=== PATIENT | female | born 1990 | race Hispanic/Latino ===

== ENCOUNTER 2018-10-04 12:53 | Emergency (ER) | payer BC ==
[2018-10-04 14:35] LABS: Urine Blood NEGATIVE (NEG); Urine Glucose NEGATIVE (NEG); Urine Protein NEGATIVE (NEG); Urine Specific Gravity 1.015 (1.005-1.030); Urine pH 6.5 (5.0-7.0)
--- NOTE | 2018-10-04 15:24 | EDPHYS ---
Physician Documentation [facility] Name: Carmela Argueta Age: 28 yrs Sex: Female : 1990 Arrival Date: 10/04/2018 Time: 12:57 Bed 17 Private MD: None, None ED Physician Herbert Osborne HPI: 10/04 13:38 This 28 yrs old Female presents to ER via Wheelchair with complaints of Flu kb Symptoms, . 13:40 The patient or guardian reports flu symptoms, low-grade fever, myalgias. Onset: The kb symptoms/episode began/occurred this morning. Severity of symptoms: At their worst the symptoms were mild, in the emergency department the symptoms are unchanged. Modifying factors: The symptoms are alleviated by nothing, the symptoms are aggravated by nothing. Associated signs and symptoms: Pertinent positives: fever, Pertinent negatives: chest pain, diarrhea, ear ache, nausea, rhinorrhea, sore throat, vomiting. The patient has not experienced similar symptoms in the past. The patient has not recently seen a physician. 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 - Social history:: Smoking status: Patient/guardian denies using tobacco. - Ebola Screening: : No symptoms or risks identified at this time. ROS: 13:37 ENT: Negative for injury, pain, and discharge, Neck: Negative for injury, pain, and kb swelling, Cardiovascular: Negative for chest pain, palpitations, and edema, Respiratory: Negative for shortness of breath, cough, wheezing, and pleuritic chest pain, Abdomen/GI: Negative for abdominal pain, nausea, vomiting, diarrhea, and constipation, Back: Negative for injury and pain, MS/Extremity: Negative for injury and deformity, Skin: Negative for injury, rash, and discoloration, Neuro: Negative for headache, weakness, numbness, tingling, and seizure. 13:37 Constitutional: Positive for body aches, chills, fatigue, fever, malaise, Negative for poor PO intake, weight loss. Exam: 13:37 Constitutional: This is a well developed, well nourished patient who is awake, alert, kb and in no acute distress. Head/Face: Normocephalic, atraumatic. ENT: Nares patent. No nasal discharge, no septal abnormalities noted. Tympanic membranes are normal and external auditory canals are clear. Oropharynx with no redness, swelling, or masses, exudates, or evidence of obstruction, uvula midline. Mucous membranes moist. Neck: Trachea midline, no thyromegaly or masses palpated, and no cervical lymphadenopathy. Supple, full range of motion without nuchal rigidity, or vertebral point tenderness. No Meningismus. Chest/axilla: Normal chest wall appearance and motion. Nontender with no deformity. No lesions are appreciated. Cardiovascular: Regular rate and rhythm with a normal S1 and S2. No gallops, murmurs, or rubs. Normal PMI, no JVD. No pulse deficits. Respiratory: Lungs have equal breath sounds bilaterally, clear to auscultation and percussion. No rales, rhonchi or wheezes noted. No increased work of breathing, no retractions or nasal flaring. Abdomen/GI: Soft, non-tender, with normal bowel sounds. No distension or tympany. No guarding or rebound. No evidence of tenderness throughout. Skin: Warm, dry with normal turgor. Normal color with no rashes, no lesions, and no evidence of cellulitis. MS/ Extremity: Pulses equal, no cyanosis. Neurovascular intact. Full, normal range of motion. Neuro: Awake and alert, GCS 15, oriented to person, place, time, and situation. Cranial nerves II-XII grossly intact. Motor strength 5/5 in all extremities. Sensory grossly intact. Cerebellar exam normal. Normal gait. Vital Signs: 13:04 BP 108 / 66; Pulse 112; Resp 18 S; Temp 99.8(O); Pulse Ox 98% on R/A; Weight 77.11 kg aa5 (R); Height 5 ft. 6 in. (167.64 cm) (R); Pain 8/10; 14:58 BP 95 / 66; Pulse 117; Resp 16 S; Temp 99.6(O); Pulse Ox 97% on R/A; jl7 13:04 Body Mass Index 27.44 (77.11 kg, 167.64 cm) aa5 MDM: 13:17 Patient medically screened. kb 13:38 Data reviewed: vital signs, nurses notes. Data interpreted: Pulse oximetry: on room air kb is 98 %. Interpretation: normal. 15:22 Counseling: I had a detailed discussion with the patient and/or guardian regarding: the kb historical points, exam findings, and any diagnostic results supporting the discharge/admit diagnosis, lab results, the need for outpatient follow up, a family practitioner, an OB/Gyne specialist, to return to the emergency department if symptoms worsen or persist or if there are any questions or concerns that arise at home. 10/04 13:03 Order name: Flu; Complete Time: 15:18 kb 10/04 13:03 Order name: Strep; Complete Time: 15:18 kb 10/04 13:04 Order name: Urine Dipstick-Ancillary (obtain specimen); Complete Time: 14:27 kb 10/04 14:27 Order name: Urine Dipstick--Ancillary (enter results); Complete Time: 14:40 bd 10/04 14:27 Order name: Urine --Ancillary (enter results); Complete Time: 14:40 bd 10/04 15:14 Order name: Throat Culture [facility] 10/04 13:04 Order name: FHT's; Complete Time: 14:27 kb 10/04 14:40 Order name: PO challenge; Complete Time: 14:59 kb Administered Medications: No medications were administered Disposition: 15:35 Co-signature as Attending Physician, Herbert Osborne MD. rn Disposition: 10/04/18 15:23 Discharged to Home. Impression: Other viral infections of unspecified site - viral syndrome. - Condition is Stable. - Discharge Instructions: Viral Respiratory Infection, [id number]. - Medication Reconciliation Form, Thank You Letter, Antibiotic Education, Prescription Opioid Use form. - Follow up: Emergency Department; When: As needed; Reason: Worsening of condition. Follow up: Private Physician; When: 2 - 3 days; Reason: Recheck today's complaints, Continuance of care, Re-evaluation by your physician. Signatures: Dispatcher [employer] EDIN Janet Dueñas, RETIREMENT ADMINISTRATOR-C RETIREMENT ADMINISTRATOR-Ckb Herbert Osborne MD MD rn Calderon, Audri, RN RN aa5 Luis Carlos Marvin RN RN jl7 Corrections: (The following items were deleted from the chart) 15:32 15:23 10/04/2018 15:23 Discharged to Home. Impression: Other viral infections of jl7 unspecified site - viral syndrome. Condition is Stable. Forms are Medication Reconciliation Form, Thank You Letter, Antibiotic Education, Prescription Opioid Use. Follow up: Emergency Department; When: As needed; Reason: Worsening of condition. Follow up: Private Physician; When: 2 - 3 days; Reason: Recheck today's complaints, Continuance of care, Re-evaluation by your physician. kb
--- NOTE | 2018-10-04 15:24 | ER ---
Nurse's Notes [facility] Name: Carmela Argueta Age: 28 yrs Sex: Female : 1990 Arrival Date: 10/04/2018 Time: 12:57 Bed 17 Private MD: None, None Diagnosis: Other viral infections of unspecified site-viral syndrome Presentation: 10/04 13:02 Presenting complaint: Patient states: body aches, headache, and chills that began last aa5 night. Denies cough. Pt states "I feel like I have the flu". Pt reports being approximately 22 weeks . Transition of care: patient was not received from another setting of care. Onset of symptoms was 2017. Risk Assessment: Do you want to hurt yourself or someone else? Patient reports no desire to harm self or others. Initial Sepsis Screen: Does the patient meet any 2 criteria? No. Patient's initial sepsis screen is negative. Does the patient have a suspected source of infection? No. Patient's initial sepsis screen is negative. Care prior to arrival: None. 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 - Social history:: Smoking status: Patient/guardian denies using tobacco. - Ebola Screening: : No symptoms or risks identified at this time. Screenin:30 Abuse screen: Denies threats or abuse. Denies injuries from another. Nutritional jl7 screening: No deficits noted. Tuberculosis screening: No symptoms or risk factors identified. Fall Risk None identified. Assessment: 13:30 General: Appears in no apparent distress. uncomfortable, Behavior is calm, cooperative, jl7 appropriate for age. Pain: Denies pain. Neuro: Level of Consciousness is awake, alert, obeys commands, Oriented to person, place, time, situation. Cardiovascular: Patient's skin is warm and dry. Respiratory: Airway is patent Respiratory effort is even, unlabored, Respiratory pattern is regular, symmetrical, Breath sounds are clear bilaterally. GI: No signs and/or symptoms were reported involving the gastrointestinal system. : No signs and/or symptoms were reported regarding the genitourinary system. EENT: No signs and/or symptoms were reported regarding the EENT system. Derm: Skin is pink, warm \\T\\ dry. Musculoskeletal: No signs and/or symptoms reported regarding the musculoskeletal system. 14:52 Reassessment: No changes from previously documented assessment. Patient and/or family jl7 updated on plan of care and expected duration. Pain level reassessed. Patient is alert, oriented x 3, equal unlabored respirations, skin warm/dry/pink. Vital Signs: 13:04 BP 108 / 66; Pulse 112; Resp 18 S; Temp 99.8(O); Pulse Ox 98% on R/A; Weight 77.11 kg aa5 (R); Height 5 ft. 6 in. (167.64 cm) (R); Pain 8/10; 14:58 BP 95 / 66; Pulse 117; Resp 16 S; Temp 99.6(O); Pulse Ox 97% on R/A; jl7 13:04 Body Mass Index 27.44 (77.11 kg, 167.64 cm) aa5 Vitals: 14:28 Heart Tones 156. jl7 ED Course: 12:57 Patient arrived in ED. mr 12:57 None, None is Private Physician. mr 12:59 Janet Due[facility]as F[facility]-C [facility] kb 12:59 Herbert Osborne MD is Attending Physician. kb 13:01 Arm band placed on. aa5 13:03 Triage completed. aa5 13:20 Luis Carlos Marvin, RN is Primary Nurse. jl7 13:30 Patient has correct armband on for positive identification. Bed in low position. Call jl7 light in reach. Side rails up X 1. Pulse ox on. NIBP on. 13:30 Flu and/or RSV swab sent to lab. Strep swab sent to lab. jl7 14:30 Urine collected: clean catch specimen, clear. jl7 15:31 No provider procedures requiring assistance completed. Patient did not have IV access jl7 during this emergency room visit. Administered Medications: No medications were administered Outcome: 15:23 Discharge ordered by . kb 15:31 Discharged to home ambulatory. jl7 15:31 Condition: stable 15:31 Discharge instructions given to patient, family, Instructed on discharge instructions, follow up and referral plans. Demonstrated understanding of instructions, follow-up care. 15:32 Patient left the ED. jl7 Signatures: Janet Dueñas FNP-C FNP-Ckb Rivera, Mary mr SonuNelly, RN RN aa5 Luis Calros Marvin RN RN jl7
[2018-10-04 16:13] VITALS: BP 95/66; TEMP 99.6; O2SAT 97
== END 2018-10-04 15:32 | disposition home or self-care (01) ==
LOC: ER 12:53
DX: B34.9 Viral infection, unspecified (principal); Z33.1 Pregnant state, incidental
CPT/HCPCS: 81003; 81025; 87070; 87081; 87804; 99283

== ENCOUNTER 2019-01-25 08:36 | Emergency (ER) | payer BC, OTHER, SELFPAY ==
--- OUTSIDE RECORDS SUMMARY | 2019-01-25 08:43 | XMS REPORT ---
:1990 Author Organization eClinicalWorks Care Team Providers Name Role Phone Dannie Martinez Provider Role Unavailable Allergies No Known Allergies Problems Problem Type Condition Code Onset Dates Condition Status Problem Uterine scar from previous O34.219 Active delivery, antepartum Problem History of gestational diabetes Z86.32 Active Problem Maternal care due to low O34.211 Active transverse uterine scar from previous delivery Problem Anemia affecting in O99.013 Active third trimester Problem Bariatric surgery status O99.843 Active complicating , third trimester Problem Need for Tdap vaccination Z23 Active Problem Supervision of high risk O09.92 Active in second trimester Problem Bariatric surgery status O99.842 Active complicating , second trimester Problem Supervision of high risk O09.93 Active in third trimester Problem Needs flu shot Z23 Active Assessment Bariatric surgery status O99.843 Active complicating , third trimester Assessment Supervision of high risk O09.93 Active in third trimester Assessment History of gestational diabetes Z86.32 Active Assessment Maternal care due to low O34.211 Active transverse uterine scar from previous delivery Problem Bariatric surgery status O99.841 Active complicating , first trimester Problem Supervision of with O09.299 Active other poor reproductive or obstetric history, unspecified trimester Problem Encounter to determine O36.80X0 Active viability of , single or unspecified fetus Problem Encounter for gynecological Z01.419 Active examination without abnormal finding Problem Supervision of high risk O09.91 Active in first trimester Medications No Known Medications Results No Known Results Summary Purpose eClinicalWorks Submission
--- OUTSIDE RECORDS SUMMARY | 2019-01-25 08:43 | XMS REPORT ---
[...] Anemia affecting in O99.013 Active third trimester Assessment Need for Tdap vaccination Z23 Active Problem Bariatric surgery status O99.843 Active complicating , third trimester Assessment Anemia affecting in O99.013 Active third trimester Problem Need for Tdap vaccination [...] risk O09.91 Active in first trimester Medications Medication Code Code Instructions Start End Status Dosage System Date Date CitraNatal 90 ND 47249302756 90-1 & 300 MG Dec 22, Active as directed DHA Orally 2018 Ferralet 90 NDC 29939795493 90-1 MG Orally Dec 22, Active 1 tablet Once a day 2018 Results No Known Results Immunizations Vaccine Administration Date TDAP > 7 Years-Adacel Dec 22, 2018 Summary Purpose eClinicalWorks Submission
--- OUTSIDE RECORDS SUMMARY | 2019-01-25 08:44 | XMS REPORT ---
[...] affecting in O99.013 Active third trimester Assessment History of gestational diabetes Z86.32 Active Problem Bariatric surgery status O99.843 Active complicating , third trimester Problem Need for Tdap vaccination Z23 Active Problem Supervision of high risk O09.92 Active in second trimester Problem Bariatric surgery status O99.842 Active complicating , second trimester Problem Supervision of high risk O09.93 Active in third trimester Problem Needs flu shot Z23 Active Assessment Anemia affecting in O99.013 Active third trimester Assessment Supervision of high risk O09.93 Active in third trimester Assessment Maternal care due to low O34.211 Active transverse uterine scar from previous delivery Assessment Bariatric surgery status O99.843 Active complicating , third trimester Problem Bariatric surgery status O99.841 Active complicating [...] Status Dosage System Date Date CitraNatal [address] [facility] 05840699371 90-1 & 300 MG Dec 22, Active as directed DHA Orally 2018 Ferralet 90 ND 59224983384 90-1 MG Orally Dec 22, Active 1 tablet Once a day 2018 Results No Known Results Summary Purpose eClinicalWorks Submission
--- OUTSIDE RECORDS SUMMARY | 2019-01-25 08:44 | XMS REPORT ---
:1990 [address] [facility] Team Providers Name Role Phone Dannie [...] Problem Needs flu shot Z23 Active Assessment Supervision of high risk O09.93 Active in third trimester Assessment Anemia affecting in O99.013 Active third trimester Assessment Maternal care due to [...] Start End Status Dosage System Date Date Ferralet 90 [facility] 58512504362 90-1 MG Orally Dec 22, Active 1 tablet Once a day 2018 CitraNatal 90 ND 88431234263 90-1 & 300 MG Dec 22, Active as directed DHA Orally 2018 Results Name Result Date Reference Range Unit Abnormality Flag CBC (INCLUDES DIFF/PLT) ----ABSOLUTE BASOPHILS 33 [id number] 0-200 cells/uL N ----ABSOLUTE EOSINOPHILS 59 [id number] 15-500 cells/uL N ----LYMPHOCYTES 26.6 41665571 % N ----NEUTROPHILS 65.7 61856167 % N ----PLATELET COUNT 229 [id number] 140-400 Thousand/uL N ----EOSINOPHILS 0.9 68964550 % N ----RDW 13.1 40025344 11.0-15.0 % N ----MONOCYTES 6.3 55243147 % N ----MCHC 33.8 22277320 32.0-36.0 g/dL N ----MCH 27.8 54668109 27.0-33.0 pg N ----MCV 82.4 49097300 80.0-100.0 fL N ----ABSOLUTE NEUTROPHILS 4336 17109086 7881-0245 cells/uL N ----MPV 8.9 41936345 7.5-12.5 fL N ----ABSOLUTE MONOCYTES 416 27744263 200-950 cells/uL N ----ABSOLUTE LYMPHOCYTES 1756 20923278 850-3900 cells/uL N ----BASOPHILS 0.5 44668745 % N ----WHITE BLOOD CELL 6.6 26186143 3.8-10.8 Thousand/uL N COUNT ----RED BLOOD CELL COUNT 3.81 53038502 3.80-5.10 Million/uL N ----HEMOGLOBIN 10.6 64415406 11.7-15.5 g/dL L ----HEMATOCRIT 31.4 [id number] 35.0-45.0 % L Summary Purpose eClinicalWorks Submission
--- OUTSIDE RECORDS SUMMARY | 2019-01-25 08:44 | XMS REPORT ---
[...] Status Dosage System Date Date Ferralet 90 [facility] [id number] 90-1 MG Orally Dec 22, Active 1 tablet Once a day 2018 CitraNatal 90 ND [id number] 90-1 & 300 MG Dec 22, Active as directed DHA Orally 2018 Results No Known Results Summary Purpose eClinicalWorks Submission
--- NOTE | 2019-01-25 09:13 | ER ---
Nurse's Notes [facility] Name: Carmela Argueta Age: 28 yrs Sex: Female : 1990 Arrival Date: 01/25/2019 Time: 08:37 Bed 14 Private MD: Diagnosis: Rash and other nonspecific skin eruption-PUPPP Presentation: 01/25 08:41 Risk Assessment: Do you want to hurt yourself or someone else? Patient reports no tw2 desire to harm self or others. Initial Sepsis Screen: Does the patient meet any 2 criteria? No. Patient's initial sepsis screen is negative. Does the patient have a suspected source of infection? Yes: Skin breakdown/wound. Care prior to arrival: None. 08:46 Presenting complaint: Patient states: Rash that started Sun on L breast, moved to R ph breast , abdomen, back, flanks, and back of neck, pt reports itching, denies recent illness or fever. Transition of care: patient was not received from another setting of care. Onset of symptoms was January 25, 2019. 08:46 Method Of Arrival: Ambulatory ph 08:46 Acuity: SCOTT 4 ph Triage Assessment: 08:38 General: Appears in no apparent distress. well groomed, Behavior is calm, cooperative, tw2 appropriate for age. 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 - Social history:: Smoking status: . - Ebola Screening: : Patient denies travel to an Ebola-affected area in the 21 days before illness onset. Screenin:40 Abuse screen: Denies threats or abuse. Nutritional screening: No deficits noted. tw2 Tuberculosis screening: No symptoms or risk factors identified. Fall Risk None identified. Assessment: 08:38 General: Appears in no apparent distress. well groomed, Behavior is calm, cooperative, tw2 appropriate for age. Pain: Denies pain. Neuro: Level of Consciousness is awake, alert, obeys commands, Oriented to person, place, time, situation. Cardiovascular: Patient's skin is warm and dry. Respiratory: Airway is patent Respiratory effort is even, unlabored, Respiratory pattern is regular, symmetrical. Derm: Reports itching, rash on torso. 09:26 Reassessment: Patient appears in no apparent distress at this time. Patient and/or tw2 family updated on plan of care and expected duration. Pain level reassessed. Patient is alert, oriented x 3, equal unlabored respirations, skin warm/dry/pink. Vital Signs: 08:48 BP 117 / 79; Pulse 96; Resp 18; Temp 97.5; Pulse Ox 99% on R/A; Weight 88.45 kg; Height ph 5 ft. 6 in. (167.64 cm); Pain 0/10; 08:48 Body Mass Index 31.47 (88.45 kg, 167.64 cm) ph ED Course: 08:37 Patient arrived in ED. as 08:39 Mae Reina RN is Primary Nurse. tw2 08:39 Janet Dueñas FNP-C is PHCP. kb 08:39 Herbert Osborne MD is Attending Physician. kb 08:41 Arm band placed on. tw2 08:41 Bed in low position. Call light in reach. Adult w/ patient. Pulse ox on. NIBP on. tw2 08:48 Triage completed. ph 09:27 No provider procedures requiring assistance completed. Patient did not have IV access tw2 during this emergency room visit. Administered Medications: 09:11 Drug: Pepcid 20 mg Route: PO; tw2 09:24 Follow up: Response: No adverse reaction tw2 09:12 Drug: Benadryl 25 mg Route: PO; tw2 09:24 Follow up: Response: No adverse reaction tw2 Outcome: 09:13 Discharge ordered by . kb 09:27 Discharged to home ambulatory, with significant other. tw2 09:27 Condition: stable 09:27 Discharge instructions given to patient, significant other. 09:28 Patient left the ED. tw2 Signatures: Janet Dueñas FNP-C FNP-Ckb Martinez, Amelia as Hall, Patricia, RN RN ph Mae Reina RN RN tw2 Corrections: (The following items were deleted from the chart) 08:49 08:48 BP 117 / 79; Pulse 18bpm; Resp 18bpm; Pulse Ox 99% RA; Temp 97.5F; 88.45 kg; ph Height 5 ft. 6 in.; BMI: 31.4; Pain 0/10; ph
--- NOTE | 2019-01-25 09:13 | EDPHYS ---
Physician Documentation [facility] Name: Carmela Argueta Age: 28 yrs Sex: Female : 1990 Arrival Date: 01/25/2019 Time: 08:37 Bed 14 Private MD: ED Physician Herbert Osborne HPI: 01/25 09:12 This 28 yrs old Female presents to ER via Ambulatory with complaints of Rash. kb 09:12 The patient's rash thought to be caused by an unknown cause. The rash is located on the kb chest, abdomen and neck. The rash can be described as macular, papular. Onset: The symptoms/episode began/occurred 3 day(s) ago. Associated signs and symptoms: Pertinent positives: itching, Pertinent negatives: burning sensation, difficulty breathing, fever, nausea, Pain swelling of lips, swelling of throat, swelling of tongue, vomiting, wheezing. Severity of symptoms: At their worst the symptoms were mild moderate in the emergency department the symptoms are unchanged. The patient has not experienced similar symptoms in the past. The patient has not recently seen a physician. HOG SCALDER: 08:48 Verified ph Historical: - Allergies: 08:41 No Known Drug Allergies; tw2 - PMHx: 08:41 gestational diabetes; tw2 - PSHx: 08:41 ; lap band; tw2 - Immunization history:: Adult Immunizations. - Social history:: Smoking status: . - Ebola Screening: : Patient denies travel to an Ebola-affected area in the 21 days before illness onset. ROS: 09:08 Constitutional: Negative for fever, chills, and weight loss, Cardiovascular: Negative kb for chest pain, palpitations, and edema, Respiratory: Negative for shortness of breath, cough, wheezing, and pleuritic chest pain, Abdomen/GI: Negative for abdominal pain, nausea, vomiting, diarrhea, and constipation, Back: Negative for injury and pain, MS/Extremity: Negative for injury and deformity, Neuro: Negative for headache, weakness, numbness, tingling, and seizure. 09:08 Skin: Positive for rash. Exam: 09:08 Constitutional: This is a well developed, well nourished patient who is awake, alert, kb and in no acute distress. Head/Face: Normocephalic, atraumatic. Chest/axilla: Normal chest wall appearance and motion. Nontender with no deformity. No lesions are appreciated. Cardiovascular: Regular rate and rhythm with a normal S1 and S2. No gallops, murmurs, or rubs. Normal PMI, no JVD. No pulse deficits. Respiratory: Lungs have equal breath sounds bilaterally, clear to auscultation and percussion. No rales, rhonchi or wheezes noted. No increased work of breathing, no retractions or nasal flaring. Abdomen/GI: Soft, non-tender, with normal bowel sounds. No distension or tympany. No guarding or rebound. No evidence of tenderness throughout. MS/ Extremity: Pulses equal, no cyanosis. Neurovascular intact. Full, normal range of motion. Neuro: Awake and alert, GCS 15, oriented to person, place, time, and situation. Cranial nerves II-XII grossly intact. Motor strength 5/5 in all extremities. Sensory grossly intact. Cerebellar exam normal. Normal gait. 09:08 Skin: rash can be described as macular, papular, urticarial, consistent with PUPPP. Vital Signs: 08:48 BP 117 / 79; Pulse 96; Resp 18; Temp 97.5; Pulse Ox 99% on R/A; Weight 88.45 kg; Height ph 5 ft. 6 in. (167.64 cm); Pain 0/10; 08:48 Body Mass Index 31.47 (88.45 kg, 167.64 cm) ph MDM: 08:40 Patient medically screened. kb 09:10 Data reviewed: vital signs, nurses notes. Data interpreted: Pulse oximetry: on room air kb is 99 %. Interpretation: normal. Counseling: I had a detailed discussion with the patient and/or guardian regarding: the historical points, exam findings, and any diagnostic results supporting the discharge/admit diagnosis, the need for outpatient follow up, an OB/Gyne specialist, to return to the emergency department if symptoms worsen or persist or if there are any questions or concerns that arise at home. Administered Medications: 09:11 Drug: Pepcid 20 mg Route: PO; tw2 09:24 Follow up: Response: No adverse reaction tw2 09:12 Drug: Benadryl 25 mg Route: PO; tw2 09:24 Follow up: Response: No adverse reaction tw2 Disposition: 10:37 Co-signature as Attending Physician, Herbert Osborne MD. rn Disposition: 01/25/19 09:13 Discharged to Home. Impression: Rash and other nonspecific skin eruption - PUPPP. - Condition is Stable. - Discharge Instructions: Rash, [id number]. - Medication Reconciliation Form, Thank You Letter, Antibiotic Education, Prescription Opioid Use, Work release form, Family Work Release form. - Follow up: Emergency Department; When: As needed; Reason: Worsening of condition. Follow up: Private Physician; When: 2 - 3 days; Reason: Recheck today's complaints, Continuance of care, Re-evaluation by your physician. Signatures: Janet Dueñas, SCRIBING MACHINE OPERATOR-C SCRIBING MACHINE OPERATOR-CkHerbert Roberts MD MD rn Reina, MARITA Wall RN tw2 Corrections: (The following items were deleted from the chart) 09:28 09:13 01/25/2019 09:13 Discharged to Home. Impression: Rash and other nonspecific skin tw2 eruption - PUPPP. Condition is Stable. Forms are Work release form, Family Work Release, Medication Reconciliation Form, Thank You Letter, Antibiotic Education, Prescription Opioid Use. Follow up: Emergency Department; When: As needed; Reason: Worsening of condition. Follow up: Private Physician; When: 2 - 3 days; Reason: Recheck today's complaints, Continuance of care, Re-evaluation by your physician. kb
[2019-01-25] MEDS ORDERED: DIPHENHYDRAMINE 25 MG TAB/CAP ONE (09:20)
[2019-01-25] MEDS ORDERED: FAMOTIDINE 20 MG TAB ONE (09:20)
[2019-01-25 09:31] VITALS: BP 117/79; TEMP 97.5; O2SAT 99
== END 2019-01-25 09:28 | disposition home or self-care (01) ==
LOC: ER 08:36
DX: R21 Rash and other nonspecific skin eruption (principal); O24.419 Gestational diabetes mellitus in pregnancy, unspecified control; Z3A.00 Weeks of gestation of pregnancy not specified
CPT/HCPCS: 99283

== ENCOUNTER 2019-02-02 07:30 | Inpatient (IN) | payer OTHER ==
[2019-02-01 15:18] LABS: Urine Appearance CLEAR; Urine Bilirubin NEGATIVE (NEG); Urine Blood NEGATIVE (NEG); Urine Color YELLOW; Urine Glucose NEGATIVE (NEG); Urine Protein NEGATIVE (NEG); Urine Specific Gravity 1.015 (1.005-1.030); Urine pH 6.5 (5.0-7.0)
[2019-02-01 15:21] LABS: Absolute Lymphocytes (CBC) 1.6 K/uL (0.7-4.9); Absolute Monocytes 0.4 K/uL (0.1-1.3); Absolute Neutrophil 3.6 K/uL (1.8-8.0); Basophils % 0.7 % (0-1.3); Eosinophils % 1.5 % (0-4.4); Hematocrit 36.8 % (36.0-45.0); Lymphocytes % 27.8 % (15.3-44.8); MPV 7.1 fL (7.6-11.3); Monocytes % 6.7 % (3.3-12.3); RBC Red Blood Cell Count 4.45 M/uL (3.86-4.86)
[2019-02-01 15:22] LABS: Urine Microscopic Reflex NO UMIC
[2019-02-01 16:11] LABS: Blood Morphology Comment NOT SEEN (NOT SEEN); Platelet Estimate ADEQ; Urine White Blood Cell Casts OK
[~2019-02-02 07:30] MED LIST: CEFAZOLIN/SWI 2gm 2 GM/20 ML SYR IV SCH
--- OUTSIDE RECORDS SUMMARY | 2019-02-02 09:19 | XMS REPORT ---
:1990 [facility] Team Providers Name Role [...] Status Dosage System Date Date Ferralet 90 [facility] [id number] 90-1 MG Orally Dec 22, Active 1 tablet Once a day 2018 CitraNatal 90 [place] 03464010457 90-1 & 300 MG Dec 22, Active as directed DHA Orally 2018 Results Name Result Date Reference Range Unit Abnormality Flag CBC (INCLUDES DIFF/PLT) ----ABSOLUTE BASOPHILS 33 [id number] 0-200 cells/uL N ----ABSOLUTE EOSINOPHILS 59 [id number] 15-500 cells/uL N ----LYMPHOCYTES 26.6 12780520 % N ----NEUTROPHILS 65.7 49022068 % N ----PLATELET COUNT 229 [id number] 140-400 Thousand/uL N ----EOSINOPHILS 0.9 67321035 % N ----RDW 13.1 61951617 11.0-15.0 % N ----MONOCYTES 6.3 26777814 % N ----MCHC 33.8 45452893 32.0-36.0 g/dL N ----MCH 27.8 71050476 27.0-33.0 pg N ----MCV 82.4 43139232 80.0-100.0 fL N ----ABSOLUTE NEUTROPHILS 4336 40349874 6316-0519 cells/uL N ----MPV 8.9 41209552 7.5-12.5 fL N ----ABSOLUTE MONOCYTES 416 09185939 200-950 cells/uL N ----ABSOLUTE LYMPHOCYTES 1756 89286224 850-3900 cells/uL N ----BASOPHILS 0.5 93138808 % N ----WHITE BLOOD CELL 6.6 93390282 3.8-10.8 Thousand/uL N COUNT ----RED BLOOD CELL COUNT 3.81 38948218 3.80-5.10 Million/uL N ----HEMOGLOBIN 10.6 00070312 11.7-15.5 g/dL L ----HEMATOCRIT 31.4 42219507 35.0-45.0 % L Summary Purpose eClinicalWorks Submission
--- OUTSIDE RECORDS SUMMARY | 2019-02-02 09:19 | XMS REPORT ---
[...] Dosage System Date Date CitraNatal 90 ND 48342946750 90-1 & 300 MG Dec 22, Active as directed DHA Orally 2018 Ferralet 90 [facility] 45793144213 90-1 MG Orally Dec 22, Active 1 tablet Once a day 2018 Results No Known Results Immunizations Vaccine Administration Date TDAP > 7 Years-Adacel Dec 22, 2018 Summary Purpose eClinicalWorks Submission
--- OUTSIDE RECORDS SUMMARY | 2019-02-02 09:20 | XMS REPORT ---
[...] Status Dosage System Date Date CitraNatal 90 [facility] [id number] 90-1 & 300 MG Dec 22, Active as directed DHA Orally 2018 Ferralet 90 ND 42209713802 90-1 MG Orally Dec 22, Active 1 tablet Once a day 2018 Results No Known Results Summary Purpose eClinicalWorks Submission
--- OUTSIDE RECORDS SUMMARY | 2019-02-02 09:20 | XMS REPORT ---
[...] Dosage System Date Date Ferralet 90 [facility] [id number] 90-1 MG Orally Dec 22, Active 1 tablet Once a day 2018 CitraNatal 90 ND 84840351566 90-1 & 300 MG Dec 22, Active as directed DHA Orally 2018 Results No Known Results Summary Purpose eClinicalWorks Submission
--- OUTSIDE RECORDS SUMMARY | 2019-02-02 09:20 | XMS REPORT ---
:1990 Author Organization eClinical[employer] Care Team Providers Name Role Phone Dannie Martinez Provider Role Unavailable Allergies No Known Allergies Problems Problem Type Condition Code Onset Dates Condition Status Problem Maternal care due to low O34.211 Active transverse uterine scar from previous delivery Problem Bariatric surgery status O99.842 Active complicating , second trimester Problem History of gestational diabetes Z86.32 Active Problem Need for Tdap vaccination Z23 Active Problem Anemia affecting in O99.013 Active third trimester Problem PUPPP (pruritic urticarial papules O26.86 Active and plaques of ) Problem Needs flu shot Z23 Active Problem Supervision of high risk O09.92 Active in second trimester Problem Bariatric surgery status O99.843 Active complicating , third trimester Problem Supervision of high risk O09.93 Active in third trimester Assessment PUPPP (pruritic urticarial papules O26.86 Active and plaques of ) Problem Supervision of with O09.299 Active other poor reproductive or obstetric history, unspecified trimester Problem Encounter to determine O36.80X0 Active viability of , single or unspecified fetus Problem Encounter for gynecological Z01.419 Active examination without abnormal finding Problem Supervision of high risk O09.91 Active in first trimester Problem Bariatric surgery status O99.841 Active complicating , first trimester Problem Uterine scar from previous O34.219 Active delivery, antepartum Medications Medication Code Code Instructions Start End Status Dosage System Date Date Betamethasone NDC 64074121670 0.05 % Jan 25January Active 1 application Dipropionate Externally 2018 05, to affected Twice a day 2019 area Results No Known Results Summary Purpose eClinicalWorks Submission
--- OUTSIDE RECORDS SUMMARY | 2019-02-02 09:20 | XMS REPORT ---
[...] risk O09.93 Active in third trimester Problem Supervision of with O09.299 Active [...] from previous O34.219 Active delivery, antepartum Medications No Known Medications Results No Known Results Summary Purpose eClinicalWorks Submission
[2019-02-02] MEDS ORDERED: Ringers Lactate 1,000 ML IV PRN (09:39)
[2019-02-02] MEDS ORDERED: NA CIT/CITRIC AC 30 ML ORAL UDC PO ONE (09:41)
[2019-02-02] MEDS ORDERED: METHYLERGONOVINE 0.2MG/ML AMP IM ONE (09:57)
[2019-02-02] MEDS ORDERED: CARBOPROST TROME 250 MCG/ML IM ONE (09:58)
[2019-02-02] MEDS ORDERED: METOCLOPRAMIDE 10 MG/2mL INJ IV SCH (10:00)
[2019-02-02] MEDS ORDERED: Ringers Lactate 1,000 ML IV SCH ×2 (10:00→19:00)
[2019-02-02] MEDS ORDERED: MORPHINE SULFATE/PF 1 MG/ML (10 ML AMP) ONE (11:50)
[2019-02-02] MEDS ORDERED: OXYTOCIN 10 UNIT/ML ML IV ONE ×2 (11:51→12:18)
[2019-02-02] MEDS ORDERED: Phenylephrine HCl 10 MG/ML 1 ML VIAL ONE (12:18)
[2019-02-02] MEDS ORDERED: ONDANSETRON 4 MG/2 ML VIAL ONE (12:22)
[2019-02-02] MEDS ORDERED: GLYCOPYRROLATE 0.2 MG/ML SYR ONE (12:23)
[2019-02-02 13:45] VITALS: BMI 32.1
[2019-02-02] MEDS ORDERED: KETOROLAC 30 MG/ML INJ IV PRN ×2 (17:58→18:07)
[2019-02-02] MEDS ORDERED: ONDANSETRON 4 MG (ODT) TAB PO PRN (18:02)
[2019-02-02] MEDS ORDERED: ONDANSETRON 4 MG/2 ML VIAL IV PRN (18:02)
[2019-02-02] MEDS ORDERED: KETOROLAC 30 MG/ML INJ IM PRN (18:05)
[2019-02-02] MEDS ORDERED: DIPHENHYDRAMINE 25 MG TAB/CAP PO PRN (18:22)
--- NOTE | 2019-02-02 21:27 | P.OBGYNHP ---
Certification for Inpatient Patient admitted to: Inpatient With expected LOS: >2 Midnights Patient will require the following post-hospital care: None Practitioner: I am a practitioner with admitting privileges, knowledge of patient current condition, hospital course, and medical plan of care. Services: Services provided to patient in accordance with Admission requirements found in Title 42 Section 412.3 of the Code of Federal Regulations Patient History Date of Service: 02/02/19 Reason for admission: REPEAT C/S AND TUBAL LIGATION History of Present Illness: Patient is a 28 y/o at 39 weeks gestation with high risk who presents with a h/o 2 prior section and multiparous female with high risk who desires permanent sterilization. Patient has obtained care with me as well as MFM. She has been closely monitored for growth and polyhydramnios due to history of bariatric surgery, obesity, and prior gestational diabetes. Due to these risks as well as risk of repeat sections patient does not desire further childbearing. Approval obtained from administration. See records for further details. Allergies No Known Drug Allergies Allergy (Verified 02/02/19 10:05) Unknown Home Medications: Vit #108/Iron/FA [ One Tablet] 325 mg PO DAILY 07/20/15 Aspirin [Adult Aspirin] 81 mg PO DAILY 02/02/19 Ferrous Sulfate [Iron] 325 mg PO DAILY 02/02/19 - Past Medical/Surgical History Diabetic: Yes -: Gestational Diabetes -: Asthma in childhood -: obesity -: section 2009 & 2014 -: Lap band 2012 -: gastric bypass 2016 - Family History Mother -: Diabetes Diabetes, High cholesterol, Hypertension -: Hypertension, Diabetes, Other (see notes) - Social History Smoking Status: Never smoker Alcohol use: No CD- Drugs: No Caffeine use: Yes Place of Residence: Home Review of Systems 10-point ROS is otherwise unremarkable Physical Examination - Vital Signs Temperature: 97.9 F Blood Pressure: 122/66 Pulse: 65 Respirations: 12 Pulse Ox (%): 98 - General General: Alert and in no apparent distress HEENT: Atraumatic Neck: Supple Respiratory: Normal air movement Cardiovascular: No edema, Normal pulses Breasts: Normal configuration Gastrointestinal: Other (gravid) Neurological: Normal gait, Normal speech - Female Pelvic External genitalia: Normal Vagina: [place], Moist Uterus: Gravid Assessment and Plan - Plan 28 y/o at 39 weeks gestation with high risk with a h/o 2 prior sections who desires permanent sterilization presents today for repeat section and bilateral tubal ligation. Ancef 2 grams IV given prior to incision. Routine postoperative care to be provided. Discharge Plan: Home Plan to discharge in: 48 Hours - Advance Directives Does patient have a Living Will: No Does patient have a Durable POA for Healthcare: No
--- NOTE | 2019-02-02 21:49 | P.OP ---
Palliative Care Physician: Sunday Warner Preoperative diagnosis: Term , multiparity, desires permanent sterilization Postoperative diagnosis: same Primary procedure: Repeat low transverse section and bilateral tubal ligation Anesthesia: Spinal Estimated blood loss: 800 Specimen: Cord blood, placenta Operative Technique: The patient was taken to the operating room where spinal anesthesia was administered without difficulty. The patient was prepped and draped in the usual sterile fashion in the dorsal supine position with a leftward tilt. A Pfannenstiel skin incision was made with the scalpel and carried through to the underlying layer of fascia using the Bovie. The fascia was incised in the midline and extended laterally using Chiang scissors. Dustin clamps were used to elevate the superior aspect of the fascial incision, which was elevated, and the underlying rectus muscles were dissected off bluntly and using Chiang scissors. Attention was then turned to the inferior aspect of the fascial incision, which in similar fashion was grasped with Dustin clamps, elevated, and the underlying rectus muscles were dissected off bluntly and using the Bovie. The rectus muscles were dissected in the midline. The peritoneum was identified and entered using Metzenbaum scissors; this incision was extended superiorly and inferiorly with good visualization of the bladder. The bladder blade was inserted. The vesicouterine peritoneum was identified and entered sharply using Metzenbaum scissors. This incision was extended laterally and the bladder flap was created digitally. The bladder blade was reinserted. The lower uterine segment was incised in a transverse fashion using the scalpel and extended with manual traction. Clear fluid was noted. The infant was subsequently delivered. The nose and mouth were bulb suctioned. The cord was clamped and cut. The infant was subsequently handed to the awaiting nursery nurse. The placenta was delivered spontaneously intact with a three-vessel cord noted. The uterus was exteriorized and cleared of all clots and debris. The uterine incision was repaired in 2 layers using 0 chromic sutures. Hemostasis was visualized. Attention was turned to the right fallopian tube, which was grasped with [place] clamp using a modified Wan method, a 2 cm of segment of tube ligated x2, transected and specimen was sent to pathology. Attention was then turned to the left fallopian tube, which was grasped with Polo clamp again using a modified [place] method, a 2 cm segment of tube was ligated x2 and transected. Hemostasis was visualized bilaterally. The uterus was returned to the abdomen, both fallopian tubes were visualized and were noted to be hemostatic. The uterine incision was reexamined and it was noted to be hemostatic. The rectus muscles were reapproximated in the midline using 0 Vicryl. The fascia was closed with 1 Vicryl suture, the subcutaneous layer was closed with 2-0 plain gut, and the skin was closed with 3.0 vicryl on a Gunner needle. Sponge, lap, and instrument counts were correct x2. The patient was stable at the completion of the procedure and was subsequently transferred to the recovery room in stable condition. Complications: None Drain(s): Urinary catheter Transferred to: Recovery Room Condition: Good
[2019-02-02] MEDS ORDERED: ACETAMINOPHEN 500 MG TAB PO PRN (22:23)
[2019-02-02] MEDS ORDERED: Oxycodone HCl/Acetaminophen 1 TAB TAB PO PRN (22:23)
[2019-02-02] MEDS ORDERED: IBUPROFEN 400 MG TAB PO PRN (22:26)
[2019-02-03 05:02] LABS: Absolute Lymphocytes (CBC) 1.6 K/uL (0.7-4.9); Absolute Monocytes 0.5 K/uL (0.1-1.3); Absolute Neutrophil 6.6 K/uL (1.8-8.0); Basophils % 0.4 % (0-1.3); Eosinophils % 0.4 % (0-4.4); Hematocrit 33.7 % (36.0-45.0); Lymphocytes % 18.5 % (15.3-44.8); MPV 7.2 fL (7.6-11.3); Monocytes % 5.9 % (3.3-12.3); RBC Red Blood Cell Count 4.12 M/uL (3.86-4.86)
[2019-02-03] MEDS ORDERED: FAMOTIDINE 20 MG/2 ML VIAL IV ONE (09:43)
[2019-02-03] MEDS: Oxycodone HCl/Acetaminophen 1 TAB TAB PO PRN (20:28)
[2019-02-04 00:17] VITALS: TEMP 98
[2019-02-04 04:48] VITALS: BP 115/75
[2019-02-04] MEDS: Oxycodone HCl/Acetaminophen 1 TAB TAB PO PRN (05:44)
--- NOTE | 2019-02-07 11:44 | P.PN ---
Date of Service: 02/03/19 The patient is postop day 1 from a repeat section. She is doing well. She is tolerating diet. Her pain is well controlled. She is afebrile. She has no complaints today she is bonding well with the baby and is breast-feeding. Vital sign stable Selected Entries 02/03/19 07:00 Temperature 97.5 F Pulse Rate 64 Respiratory 18 Rate Blood Pressure 127/77 Laboratory Tests 02/01/19 02/03/19 14:52 04:13 WBC 5.6 8.8 D Hgb 12.2 11.4 L Hct 36.8 33.7 L Plt Count 298 278 General: Resting in bed no distress Head and neck: Normocephalic atraumatic, supple Respiratory: Symmetric nonlabored breathing Abdomen: Soft, mildly distended, mildly tender. Incision clean dry and intact Bilateral lower extremities: No clubbing cyanosis or edema. Assessment and plan patient is postop day 1 after repeat section she is doing well. Pain is well controlled. Discontinue IV discontinue Hernandez catheter. Encourage patient to ambulate. Possible discharge home tomorrow.
--- NOTE | 2019-02-07 11:46 | P.DS ---
Admission Date: 02/02/19 Discharge Date: 02/04/19 Disposition: ROUTINE DISCHARGE Discharge Condition: GOOD Reason for Admission: REPEAT C/S AND TUBAL LIGATION Brief History of Present Illness: Patient is a 28 y/o at 39 weeks gestation with high risk who presents with a h/o 2 prior section and multiparous female with high risk who desires permanent sterilization. Patient has obtained care with me as well as MFM. She has been closely monitored for growth and polyhydramnios due to history of bariatric surgery, obesity, and prior gestational diabetes. Due to these risks as well as risk of repeat sections patient does not desire further childbearing. Approval obtained from administration. See records for further details. Hospital Course: Patient did well following delivery. She has been bonding well with her baby. She is ambulating. Pain is well controlled. No issues. Vital Signs/Physical Exam: Temp Pulse Resp BP Pulse Ox 98 F 76 12 115/75 98 02/04/19 00:16 02/04/19 04:47 02/04/19 04:47 02/04/19 04:47 02/02/19 21:38 General: Alert, In no apparent distress HEENT: Atraumatic Neck: Supple Respiratory: Normal air movement Cardiovascular: Edema (+1) Gastrointestinal: Soft and benign, No rebound, No guarding, Other (incision clean, dry and intact) Musculoskeletal: No clubbing, No swelling Neurological: Normal gait, Normal speech Laboratory Data at Discharge: WBC 8.8 K/uL (4.3-10.9) D 02/03/19 04:13 Hgb 11.4 g/dL (12.0-15.0) L 02/03/19 04:13 Hct 33.7 % (36.0-45.0) L 02/03/19 04:13 Plt Count 278 K/uL (152-406) 02/03/19 04:13 Home Medications: Vit #108/Iron/FA [ One Tablet] 325 mg PO DAILY 07/20/15 Aspirin [Adult Aspirin] 81 mg PO DAILY 02/02/19 Ferrous Sulfate [Iron] 325 mg PO DAILY 02/02/19 Codeine/APAP [Tylenol W/Codeine #3 tab] 1 tab PO Q6HP PRN #24 tab 02/04/19 New Medications: Codeine/APAP [Tylenol W/Codeine #3 tab] 1 tab PO Q6HP PRN #24 tab PRN Reason: Pain Diet: Regular Activity: No lifting more than 10 lbs Followup: Dannie Martinez DO [ACTIVE - CAN ADMIT] -
== END 2019-02-04 10:55 | disposition home or self-care (01) | DRG 785 ==
LOC: 2ND-WC 09:14
PROVIDERS: ADMIT Student in an Organized Health Care Education/Training Program; ATTEND Student in an Organized Health Care Education/Training Program
PROC: 0UB70ZZ Excision of Bilateral Fallopian Tubes, Open Approach (ICD-10-PCS; 2019-02-02)
PROC: 10D00Z1 Extraction of Products of Conception, Low, Open Approach (ICD-10-PCS; principal; 2019-02-02 07:30)
DX: O34.211 Maternal care for low transverse scar from previous cesarean delivery (principal); N85.8 Other specified noninflammatory disorders of uterus; O99.214 Obesity complicating childbirth; O75.82 Onset (spontaneous) of labor after 37 completed weeks of gestation but before 39 completed weeks gestation, with delivery by (planned) cesarean section; Z3A.39 39 weeks gestation of pregnancy; Z37.0 Single live birth; O99.844 Bariatric surgery status complicating childbirth; Z30.2 Encounter for sterilization
CPT/HCPCS: 36415; 81003; 85025; 86850; 86900; 86901; 88302; 88307; J2210; J2370; J2405; J2590; J2765